=== PATIENT | female | born 1945 | race Caucasian/White ===

== ENCOUNTER 2016-07-18 13:35 | Emergency (ER) | payer MEDICARE, OTHER ==
[2016-07-18 13:36] VITALS: BMI 29.9
[2016-07-18 14:56] LABS: LEUKOCYTES/URINE 2+ (NEGATIVE); NITRITE/URINE NEG (NEGATIVE); URINE OCCULT BLOOD NEG (NEG/TRACE); WBC/URINE 30-40 (0-5)
[2016-07-18 14:56] LABS: MPV 7.7 fL (7.4-10.4)
[2016-07-18 15:06] LABS: BLOOD UREA NITROGEN 19 MG/DL (7-17); CALCIUM 9.6 MG/DL (8.4-10.2); CALCULATED OSMOLALITY 272 MOs/Kg (270-290); CHLORIDE 101 mEq/L (98-107); GLUCOSE 124 MG/DL (70-99); SODIUM LEVEL 140 mEq/L (137-146); TOTAL PROTEIN 7.5 G/DL (6.3-8.2)
[2016-07-18 15:22] LABS: SEG NEUTROPHIL 75 % (45-76)
[2016-07-18] MEDS ORDERED: CEFTRIAXONE 1 GM in D5W 100 ML IV ONE (16:43)
[2016-07-18] MEDS ORDERED: SODIUM CHLORIDE 0.9% 10 ML FLUSH FLUSH PRN (16:43)
[2016-07-18] MEDS ORDERED: ONDANSETRON HCL 4 MG/2 ML VIAL IV ONE (16:43)
[2016-07-18] MEDS ORDERED: MORPHINE 4 MG/ML INJECTION IV ONE (16:43)
[2016-07-18] MEDS ORDERED: NS 1,000 ML IV ONE (16:43)
--- NOTE | 2016-07-18 16:46 | EDPRACDOC ---
- General Information Chief Complaint: Back Pain Stated Complaint: LEFT LOWER ABDOMINAL PAIN Time Seen by Provider: 07/18/16 16:38 Mode Of Arrival: Car Home Medications: Home Medications Albuterol Sulfate MDI [Proventil HFA] 2 puff INH Q4-6H PRN 07/18/16 Albuterol Sulfate Nebs [Proventil, Ventolin] 3 ml NEB Q6-8H PRN 07/18/16 Alprazolam [Xanax] 0.5 mg PO QHS PRN 07/18/16 Aspirin/Calcium Carbonate/Mag [Aspirin Buffered 325 mg Tab] 325 mg PO DAILY Atorvastatin Calcium [Lipitor] 80 mg PO QHS 07/18/16 Ca/D3/Mag#11/Zinc/[employer]/Braydon/Bor [Caltrate 600+D Plus Tablet] 1 tab PO DAILY 07/18 Cephalexin 500 mg PO BID 07/18/16 Ciprofloxacin HCl [Cipro] 500 mg PO BID #14 tab 07/18/16 Cyanocobalamin (Vitamin B-12) [Vitamin B-12] 1,000 mcg PO DAILY 07/18/16 Diltiazem HCl [Cartia Xt] 300 mg PO DAILY 07/18/16 Esomeprazole Magnesium [Nexium] 40 mg PO DAILY 07/18/16 Fluticasone Propionate [Flovent Hfa-110] 1 puff INH BID 07/18/16 Insulin Glargine,Hum.rec.anlog [Cedric Alexander] 45 unit SQ QAM 07/18/16 Insulin Lispro [Humalog] 5 units SQ TIDAC 07/18/16 Lisinopril 10 mg PO DAILY 07/18/16 Mesalamine [Asacol] 800 mg PO TID 07/18/16 [place]-3 Fatty Acids/Fish Oil [Fish Oil 1,000 mg Softgel] 1 cap PO DAILY Paroxetine HCl [Paxil] 40 mg PO DAILY 07/18/16 Polyethylene Glycol 3350 [Miralax] 17 gm PO DAILY PRN #119 grams 07/18/16 Prednisone [Deltasone, Orasone] 5 mg PO DAILY 07/18/16 Tramadol HCl [Ultram] 50 mg PO Q6H PRN #15 tab 07/18/16 Allergies/Adverse Reactions: Allergies Allergy/AdvReac Type Severity Reaction Status Date / Time nitrofurantoin Allergy Wheezing Verified 01/21/14 01:57 - History of Present Illness Onset: 1 WEEK HPI: Pt c/o L flank pain radiating to LLQ and groin x 1 week. Denies fever, n/v, changes in bowel or bladder, rash. Pt states currently on Keflex for UTI x 48 hours. Pain Location: Reports: Left, Lumbar, Flank Pain Radiates To: Reports: Other (LLQ pain) Pain Caused By: Reports: Spontaneous Circumstances: Reports: Unknown Relevant History: Reports: UTI Currently ?: No Pain Severity: Reports: Moderate Pain Quality: Reports: Aching Worsened By: Reports: Nothing Associated Signs and Symptoms: Reports: Abdominal Pain ED Past Medical History - History Reviewed Yes Nurses notes reviewed and agree except as marked - Patient Medical History Cardiac History: Reports: Hypertension, Hypercholesterolemia Respiratory History: Reports: Asthma GI/ History: Reports: Kidney Stones, Gastroesophageal Reflux Musculoskeletal History: Reports: Arthritis Systemic History: Reports: Diabetes. Denies: Cancer Surgical History: Reports: Other (BACK SURGERY) - Social Medical History Smoking Status: Never smoker ETOH: None Substance Abuse: None EDM Review of Systems - Review of Systems Constitutional: No Symptoms Reported. negative: Fever, Chills, Weakness, Fatigue, Loss of Appetite Respiratory: No Symptoms Reported. negative: Cough, Brassy Cough, Barky Cough, Shortness of Breath, Wheezing, Hemoptysis Cardiovascular: No Symptoms Reported. negative: Chest Pain, Palpitations, Syncope, Edema, Orthopnea, PND, Skin Mottling, Cyanosis Gastrointestinal: Pain Genitourinary: Flank Pain. negative: No Symptoms Reported, Bleeding, Dysuria, Discharge, Frequency, Hematuria, , Testicular Pain Neurological: No Symptoms Reported. negative: Headache, Dizziness, Seizure, Numbness, Weakness, Speech Difficulty, Gait Difficulty Musculoskeletal: Back Integumentary: No Symptoms Reported. negative: Itching, Rash, Bruising, Wound Allergic/Immunologic: No Symptoms Reported. negative: Hives, Itching Hematologic: No Symptoms Reported. negative: Lymphadenopathy, Easy Bruising, Easy Bleeding Psychiatric: No Symptoms Reported. negative: Anxiety, Depression, Hallucinations, Insomnia, Suicidal - Physical Exam Constitutional: Alert Oriented to: Time, Person, Place Last recorded Vital Signs: Last Vital Signs Temp 99.0 F 07/18/16 14:34 Pulse 116 07/18/16 14:34 Resp 18 07/18/16 14:34 BP 162/69 07/18/16 14:34 Pulse Ox 97 07/18/16 14:34 Oxygen Pulse Oxygen Saturation 97 O2 Device Room Air Oxygen Flow Rate Fraction of Inspired Oxygen ( FIO2) - HEENT Head: Normal ( normocephalic) Eye Exam: Normal (PERRL, EOMI, Sclera white) Neck: Normal (FROM, trachea at midline) - Respiratory/Cardiovascular Respiratory: Normal - CTA (BBS clear to auscultation without adventitious sounds ) Cardiovascular: Normal (RRR without murmur, gallop or rub) - GI Auscultation: Normal (NABS) Palpation: Normal (Soft,No rebound or guarding, non distended) Tenderness: Non tender - Musculoskeletal Back: Normal (Non-Tender) Extremities: Normal (Normal tone, Pulses 2+ No cyanosis or edema, FROM) - Integumentary Skin: Normal, Warm, Dry Lymphatics: Normal (no adenopathy) - Neurologic Memory Impaired: Normal Motor Function: Normal (Normal tone, Pulses 2+ No cyanosis or edema, FROM) Mood Description: Normal Perception: Normal ED Back Exam - Neurologic Motor Deficit: None (strength 5/5, sensation nl) Reflexes: Normal (CN II-X11 intact) - Musculoskeletal Cervical: Normal Thoracic: Normal Lumbar: Normal Midline: Normal Paraspinous: Normal Straight Leg Raise: Negative Pelvis: Normal - Differential Diagnosis Musculoskeletal pain, Other (diverticulitis), Pyelonephritis, Urolithiasis, Urinary tract infection - Results 07/18/16 14:35 07/18/16 14:35 WBC 12.0 xk/uL (3.8-10.8) H 07/18/16 14:35 RBC 5.19 xM/uL (4.20-5.40) 07/18/16 14:35 Hgb 11.3 g/dL (12.0-16.0) L 07/18/16 14:35 Hct 36.8 % (36-47) 07/18/16 14:35 MCV 71 fL (81-99) L 07/18/16 14:35 MCH 21.8 pg (27-32) L 07/18/16 14:35 MCHC 30.7 g/dl (33-36) L 07/18/16 14:35 RDW 17.6 % (11.5-14.5) H 07/18/16 14:35 Plt Count 537 xk/uL (130-400) H 07/18/16 14:35 MPV 7.7 fL (7.4-10.4) 07/18/16 14:35 Neut % (Auto) Cancelled 07/18/16 14:35 Lymph % (Auto) Cancelled 07/18/16 14:35 [place] % (Auto) Cancelled 07/18/16 14:35 Eos % (Auto) Cancelled 07/18/16 14:35 Baso % (Auto) Cancelled 07/18/16 14:35 Absolute Neuts (auto) Cancelled 07/18/16 14:35 Absolute Lymphs (auto) Cancelled 07/18/16 14:35 Seg Neuts % (Manual) 75 % (45-76) 07/18/16 14:35 Band Neutrophils % 2 % (0-5) 07/18/16 14:35 Lymphocytes % (Manual) 16 % (17-44) L 07/18/16 14:35 Monocytes % (Manual) 4 % (0-10) 07/18/16 14:35 Eosinophils % (Manual) 1 % (0-5) 07/18/16 14:35 Basophils % (Manual) 2 % (0-2) 07/18/16 14:35 Absolute Neutrophils 9.24 xk/uL (1.7-8.2) H 07/18/16 14:35 Absolute Lymphocytes 1.92 xk/uL (0.65-4.75) 07/18/16 14:35 Platelet Estimate Inc (NORMAL) Large plts present (NORMAL) 07/18/16 14:35 Platelet Estimate Inc (NORMAL) Large plts present (NORMAL) 07/18/16 14:35 RBC Morphology 1+ polychrom 1+ ellipto 2+ hypo 1+ micro 2+ poik 1+ aniso 14:35 RBC Morphology 1+ polychrom 1+ ellipto 2+ hypo 1+ micro 2+ poik 1+ aniso 14:35 RBC Morphology 1+ polychrom 1+ ellipto 2+ hypo 1+ micro 2+ poik 1+ aniso 14:35 RBC Morphology 1+ polychrom 1+ ellipto 2+ hypo 1+ micro 2+ poik 1+ aniso 14:35 RBC Morphology 1+ polychrom 1+ ellipto 2+ hypo 1+ micro 2+ poik 1+ aniso 14:35 RBC Morphology 1+ polychrom 1+ ellipto 2+ hypo 1+ micro 2+ poik 1+ aniso 14:35 Sodium 140 mEq/L (137-146) 07/18/16 14:35 Potassium 3.9 mEq/L (3.5-5.1) 07/18/16 14:35 Chloride 101 mEq/L (98-107) 07/18/16 14:35 Carbon Dioxide 28 mMOL/L (22-33) 07/18/16 14:35 Anion Gap 15 mEq/L (8-16) 07/18/16 14:35 BUN 19 MG/DL (7-17) H 07/18/16 14:35 Creatinine 0.80 MG/DL (0.52-1.04) 07/18/16 14:35 Estimated GFR (MDRD) > 60 mL/min (>=60) 07/18/16 14:35 Glucose 124 MG/DL (70-99) H 07/18/16 14:35 Calculated Osmolality 272 MOs/Kg (270-290) 07/18/16 14:35 Calcium 9.6 MG/DL (8.4-10.2) 07/18/16 14:35 Total Bilirubin 0.3 MG/DL (0.2-1.3) 07/18/16 14:35 AST 23 IU/L (14-36) 07/18/16 14:35 ALT 21 IU/L (9-52) 07/18/16 14:35 Alkaline Phosphatase 117 IU/L (55-165) 07/18/16 14:35 Total Protein 7.5 G/DL (6.3-8.2) 07/18/16 14:35 Albumin 4.2 G/DL (3.5-5.0) 07/18/16 14:35 Urine Color Karen 07/18/16 14:38 Urine Clarity Sl cldy 07/18/16 14:38 Urine pH 6.0 (5.0-8.0) 07/18/16 14:38 Ur Specific Lilly 1.030 (1.003-1.035) 07/18/16 14:38 Urine Protein 1+ (NEG/TRACE) H 07/18/16 14:38 Urine Glucose (UA) Neg (NEGATIVE) 07/18/16 14:38 Urine Ketones Neg (NEGATIVE) 07/18/16 14:38 Urine Occult Blood Neg (NEG/TRACE) 07/18/16 14:38 Urine Nitrite Neg (NEGATIVE) 07/18/16 14:38 Urine Bilirubin Neg (NEGATIVE) 07/18/16 14:38 Urine Urobilinogen <2.0 MG/DL (0-1) 07/18/16 14:38 Ur Leukocyte Esterase 2+ (NEGATIVE) H 07/18/16 14:38 Urine RBC 5-10 (0-5) H 07/18/16 14:38 Urine WBC 30-40 (0-5) H 07/18/16 14:38 Ur Epithelial Cells 2+ 07/18/16 14:38 Urine Bacteria Few (NEG/FEW) 07/18/16 14:38 Hyaline Casts 2-5 (0-2) H 07/18/16 14:38 Urine Mucus Mod (NEG/OCC) H 07/18/16 14:38 Lab Results 07/18/16 07/18/16 07/18/16 14:38 14:35 14:35 WBC 12.0 H RBC 5.19 Hgb 11.3 L Hct 36.8 MCV 71 L MCH 21.8 L MCHC 30.7 L RDW 17.6 H Plt Count 537 H MPV 7.7 Neut % (Auto) Cancelled Lymph % (Auto) Cancelled [place] % (Auto) Cancelled Eos % (Auto) Cancelled Baso % (Auto) Cancelled Absolute Neuts (auto) Cancelled Absolute Lymphs (auto) Cancelled Seg Neuts % (Manual) 75 Band Neutrophils % 2 Lymphocytes % (Manual) 16 L Monocytes % (Manual) 4 Eosinophils % (Manual) 1 Basophils % (Manual) 2 Absolute Neutrophils 9.24 H Absolute Lymphocytes 1.92 Platelet Estimate Large plts present RBC Morphology 1+ aniso Sodium 140 Potassium 3.9 Chloride 101 Carbon Dioxide 28 Anion Gap 15 BUN 19 H Creatinine 0.80 Estimated GFR (MDRD) > 60 Glucose 124 H Calculated Osmolality 272 Calcium 9.6 Total Bilirubin 0.3 AST 23 ALT 21 Alkaline Phosphatase 117 Total Protein 7.5 Albumin 4.2 Urine Color Karen Urine Clarity Sl cldy Urine pH 6.0 Ur Specific Lilly 1.030 Urine Protein 1+ H Urine Glucose (UA) Neg Urine Ketones Neg Urine Occult Blood Neg Urine Nitrite Neg Urine Bilirubin Neg Urine Urobilinogen <2.0 Ur Leukocyte Esterase 2+ H Urine RBC 5-10 H Urine WBC 30-40 H Ur Epithelial Cells 2+ Urine Bacteria Few Hyaline Casts 2-5 H Urine Mucus Mod H - Diagnostic Imaging Abdomen Image interpreted by: Radiologist IMPRESSION: 1. There is no evidence of nephrolithiasis. No hydronephrosis or hydroureter. 2. Hiatal hernia measures 5 cm. 3. No calcified gallstones are noted within gallbladder. 4. Degenerative changes and postsurgical changes lumbar spine. 5. Normal appendix. No pericecal inflammation. 6. Moderate stool noted in proximal colon. Redundant transverse colon. Multiple colonic diverticula are noted descending colon and sigmoid colon. No evidence of acute diverticulitis. No distal colonic obstruction. Unremarkable uterus and adnexa. - Departure Disposition: Home Condition: Good Final Diagnosis: Acute low back pain UTI (urinary tract infection) Qualifiers: Urinary tract infection type: acute cystitis Hematuria presence: with hematuria Qualified Code(s): N30.01 - Acute cystitis with hematuria Constipation Qualifiers: Constipation type: unspecified constipation type Qualified Code(s): K59.00 - Constipation, unspecified Instructions: Urinary Tract Infection in Women (ED), Dysuria, Acute Low Back Pain (ED), Constipation (ED), High Fiber Diet (ED) Education/Counseling Given To: Patient Education/Counseling Given Regarding: Diagnosis, Treatment, Follow Up Referrals: Sara Clinton PA [Primary Care Provider] - One Week Prescriptions: Ciprofloxacin HCl [Cipro] 500 mg PO BID #14 tab Polyethylene Glycol 3350 [Miralax] 17 gm PO DAILY PRN #119 grams PRN Reason: Constipation Tramadol HCl [Ultram] 50 mg PO Q6H PRN #15 tab PRN Reason: Pain Additional Instructions: INcrease fluids. Return for worse or different symptoms.
--- NOTE | 2016-07-18 17:31 | DIRPT ---
CLINICAL DATA: Left flank pain, hematuria for 1 week EXAM: CT ABDOMEN AND PELVIS WITHOUT CONTRAST TECHNIQUE: Multidetector CT imaging of the abdomen and pelvis was performed following the standard protocol without IV contrast. COMPARISON: CT scan 09/24/2009 FINDINGS: Sagittal images of the spine shows posterior fusion at L3-L4-L5-S1 level. There is disc space flattening with vacuum disc phenomenon at L2-L3 level. Significant disc space flattening with vacuum disc phenomenon and endplate sclerotic changes with mild posterior spurring at L1-L2 level. Lung bases are unremarkable. Moderate size hiatal hernia measures 5 cm. Unenhanced liver shows no biliary ductal dilatation. No calcified gallstones are noted within gallbladder. The pancreas, spleen and adrenal glands are unremarkable. Unenhanced kidneys are symmetrical in size. No hydronephrosis or hydroureter. There is a cyst in midpole of the right kidney measures 2.4 cm. No calcified ureteral calculi are noted. No aortic aneurysm. No small bowel obstruction. No ascites or free air. No adenopathy. There is no pericecal inflammation. Normal appendix is partially visualized in axial image 66. Moderate stool noted right colon and transverse colon. Multiple descending colon diverticula. Multiple sigmoid colon diverticula. There is no evidence of acute diverticulitis. There is redundant transverse colon. No evidence of colitis. No distal colonic obstruction. Vascular calcifications are noted bilateral adnexal region. The uterus is anteflexed. No adnexal masses noted. No calcified calculi are noted within urinary bladder. The urinary bladder is under distended. IMPRESSION: 1. There is no evidence of nephrolithiasis. No hydronephrosis or hydroureter. 2. Hiatal hernia measures 5 cm. 3. No calcified gallstones are noted within gallbladder. 4. Degenerative changes and postsurgical changes lumbar spine. 5. Normal appendix. No pericecal inflammation. 6. Moderate stool noted in proximal colon. Redundant transverse colon. Multiple colonic diverticula are noted descending colon and sigmoid colon. No evidence of acute diverticulitis. No distal colonic obstruction. Unremarkable uterus and adnexa. Electronically Signed By: Jatin Zavaleta M.D. On: 07/18/2016 17:28
[2016-07-18 19:54] VITALS: BP 124/56; PULSE 77; TEMP 98.2
== END 2016-07-18 19:52 | disposition home or self-care (01) ==
LOC: ED 13:35
DX: N30.01 Acute cystitis with hematuria (principal); K59.00 Constipation, unspecified; M54.5 Low back pain
CPT/HCPCS: 36415; 74176; 80053; 81001; 83605; 85007; 85027; 87040; 87086; 96361; 96365; 96375; 99284; J0696; J2270; J2405; J7060